=== PATIENT | male | born 1955 | race Caucasian/White ===

== ENCOUNTER 2021-06-06 05:17 | Day surgery (SDC) | payer MEDICARE, OTHER ==
[2021-05-31 10:22] LABS: PRE OP PROTIME 10.4 SECONDS (9.0-12.0)
[2021-05-31 10:25] LABS: ALBUMIN 3.7 G/DL (3.4-5.0); ALKALINE PHOSPHATASE 112 IU/L (46-116); BLOOD UREA NITROGEN 15 MG/DL (7-18); CALCIUM 9.3 MG/DL (8.5-10.1); CHLORIDE 104 MMOL/L (99-107); CREATININE 1.25 MG/DL (0.60-1.10); PRE OP ALT 25 U/L (30-65); PRE OP ANION GAP 13 (8-16); PRE OP AST 14 U/L (10-37); PRE OP BILIRUB, TOTAL 0.5 MG/DL (0.0-1.0); PRE OP GLUCOSE 197 MG/DL (70-104); PRE OP POTASSIUM 4.6 MMOL/L (3.4-5.1); PRE OP SODIUM 139 MMOL/L (135-145); TOTAL CARBON DIOXIDE 22.5 MMOL/L (24-32); TOTAL PROTEIN 7.5 G/DL (6.4-8.2); eGFR 58 ML/MIN
[2021-05-31 10:26] LABS: BASOPHILS # (AUTO) 0.1 X10'3 (0-0.2); BASOPHILS % (AUTO) 0.6 % (0-1); EOSINOPHILS # (AUTO) 0.1 X10'3 (0-0.9); EOSINOPHILS % (AUTO) 1.1 % (0-6); LYMPHOCYTES # (AUTO) 1.8 X10'3 (1.1-4.8); LYMPHOCYTES % (AUTO) 18.7 % (21-51); MEAN CORPUSCULAR HEMOGLOBIN 32.5 PG (27.0-31.0); MEAN CORPUSCULAR HGB CONC 33.9 g/dL (33.0-36.5); MEAN PLATELET VOLUME 8.6 FL (7.4-10.4); NEUTROPHILS # (AUTO) 6.8 X10'3 (1.8-7.7); NEUTROPHILS % (AUTO) 69.6 % (42-75); PRE OP HEMATOCRIT 44.5 % (42.0-52.0); PRE OP HEMOGLOBIN 15.1 g/dL (14.0-17.9); PRE OP PLATELET COUNT 219 X10'3 (140-440); RED BLOOD COUNT 4.63 X10'6 (4.70-6.10); RED CELL DISTRIBUTION WIDTH 13.7 % (11.5-14.5)
[~2021-06-06] VITALS: Ht 177.8 cm; Wt 109.5 kg
[2021-06-06] VITALS (10 sets, daily range): BP systolic 103–136; BP diastolic 61–90
[~2021-06-06 05:17] MED LIST: ACAR50TA4 PO; METF-436 PO; METO25TA6 PO; ringers solution, lacted 1,000 ML IV SCH
[2021-06-06] MEDS ORDERED: DOCUMENT DATE & TIME OF BETA-BLOCKER PO ONE (05:30)
[2021-06-06] MEDS ORDERED: cefazolin/dext.iso 2gm/100ml IV ONE (05:30)
[2021-06-06] MEDS ORDERED: famotidine 20mg tablet PO ONE (05:30)
[2021-06-06] MEDS ORDERED: BUPIVAcaine/PF 2.5mg/ml (0.25%) 10ml vial ONE ×2 (06:37)
[2021-06-06] MEDS ORDERED: LIDOcaine 1% 30ml preserv. free vial ONE (06:37)
[2021-06-06] MEDS ORDERED: BUPIVACAINE liposomal/PF 13.3 MG/ML vial IM ONE (06:38)
[2021-06-06] MEDS ORDERED: morphine 2 MG/ML inj. syringe IV PRN (07:15)
[2021-06-06] MEDS ORDERED: hydrALAZINE 20mg/ml inj. IV PRN (07:15)
[2021-06-06] MEDS ORDERED: ondansetron/PF 4mg/2ml inj IV PRN (07:15)
[2021-06-06] MEDS ORDERED: ringers solution, lacted 1,000 ML IV SCH (07:15)
[2021-06-06] MEDS ORDERED: fentaNYL/PF 50MCG/1 ML 2ML syringe IV PRN ×2 (07:15)
[2021-06-06] MEDS ORDERED: labetalol 20mg/4ml (5mg/ml) syringe IV PRN (07:15)
[2021-06-06] MEDS ORDERED: morphine 4 MG/ML inj SYRINge IV PRN (07:15)
[2021-06-06] MEDS ORDERED: midazolam 1 mg/ML 2ml injection ONE (07:20)
[2021-06-06] MEDS ORDERED: fentaNYL /PF 50mcg/ml 5ml ampule ONE (07:20)
[2021-06-06] MEDS ORDERED: dexamethasone sod phosphate 4mg/ml inj. ONE (07:23)
[2021-06-06] MEDS ORDERED: neostigmine methylsulfate 1 MG/ML 10ml vial ONE (07:23)
[2021-06-06] MEDS ORDERED: LIDOcaine 2% (20mg/ml) 5ml vial ONE (07:23)
[2021-06-06] MEDS ORDERED: propofol inj 20 ML IV ONE (07:23)
[2021-06-06] MEDS ORDERED: glycopyrrolate 0.2mg/ml inj ONE (07:23)
[2021-06-06] MEDS ORDERED: rocuronium 10mg/ml inj IV ONE ×2 (07:23→08:51)
[2021-06-06] MEDS ORDERED: ondansetron/PF 4mg/2ml inj ONE (07:24)
[2021-06-06] MEDS ORDERED: sevoflurane 250ml liquid IH ONE (07:33)
--- NOTE | 2021-06-06 09:06 | NUR ---
Received from OR via [facility], accompanied by Anesthesiologist HUGO and report given by Anesthesiolgist. VSS, LR INFUSING AT 100 ML/HR IN 20G IV IN LEFT HAND. O2 AT 6L MASK. PT. ALERT AND MOVING. PULSES, SENSATION, MOVEMENT INTACT ON ALL EXTREMITIES. DENIES PAIN AT THIS TIME. REPOSITIONED ON LEFT SIDE FOR COMFORT WITH PILLOWS. Addendum: 06/06/21 at 0924 by Darlene Rojo RN Amended: Links added.
[2021-06-06] MEDS ORDERED: oxyCODONE/APAP 5-325mg tablet PO PRN ×2 (09:15)
--- NOTE | 2021-06-06 10:16 | NUR ---
PT. DCD HOME VIA TO PRIVATE VEHICLE AND , DEMOND, TOLERATES FLUIDS AND CRACKERS, DC CRITERIA MET. PT. A&OX4. ABLE TO AMBULATE. DECLINES RESTROOM, PAIN AT 2/10 FROM DRESSING OTHERWISE HAD NO PAIN. . PRN PAIN MEDS GIVEN TO BE PRE MEDICATED FOR TRAVEL HOME DUE TO DISTANCE. PAIN MEDS PRESCRIPTION AT [facility]. BG 238 DUE TO DEXTROSE IN ABX.PT. 195 ON ARRIVAL TO [facility]. PT. WILL TAKE HIS ORAL DIABETES MEDICATIONS KATHERYN. PT. STATES HE TENDS TO BE IN THE "HIGHER RANGE MOST OF THE TIME" . NO ASE NOTED. INSTRUCTIONS GIVEN TO PT AND THEN TO AT CAR. BOTH STATED UNDERSTANDING. Addendum: 06/06/21 at 1025 by Darlene Rojo RN Amended: Links added.
== END 2021-06-06 10:16 | disposition home or self-care (01) ==
LOC: PAS 05:17
PROVIDERS: ATTEND Surgery
DX: K43.0 Incisional hernia with obstruction, without gangrene (principal); I10 Essential (primary) hypertension; E11.9 Type 2 diabetes mellitus without complications; E66.9 Obesity, unspecified; Z68.34 Body mass index [BMI] 34.0-34.9, adult; Z98.890 Other specified postprocedural states; Z79.899 Other long term (current) drug therapy; Z79.84 Long term (current) use of oral hypoglycemic drugs; Z72.89 Other problems related to lifestyle; Z95.5 Presence of coronary angioplasty implant and graft; Z79.01 Long term (current) use of anticoagulants; Z20.822 Contact with and (suspected) exposure to COVID-19; Z82.49 Family history of ischemic heart disease and other diseases of the circulatory system
CPT/HCPCS: 36415; 49655; 64488; 80053; 82948; 85025; 85610; 85730; C1781; C9290; J1100; J2001; J2250; J2405; J2704; J2710; J3010; J3490; J7120; U0003; U0005; Z7506; Z7508; Z7512; A4215; A4618